=== PATIENT | male | born 1930 | race Caucasian/White ===

== ENCOUNTER 2016-12-06 11:26 | Emergency (ER) | payer OTHER ==
[~2016-12-06] VITALS: Ht 177.8 cm; Wt 83.0 kg
[~2016-12-06 11:26] MED LIST: ADULT LOW DOSE81 M1 PO; ADVAIR HFA120 INHAL1 IH; ADVAIR HFA120 INHALA IH; AERONEB GO NEB1 EACH MC; ASPIR 8181 M1 PO; CEFTIN500 MG PO; CIPRO500 MG PO; CORTISONE57 GM TP; CORTIZONE-10 PL57 GM TP; FLOMAX0.4 MG PO; FLONASE16 G1 BOTH NARES; FUROSEMIDE20 MG PO; FUROSEMIDE40 MG PO; Flagyl PO; HYDROCODON-ACE1 EAC7 PO; IMODIUM A-D2 MG PO; K-DUR20 MEQ PO; K-Dur PO; LASIX20 MG PO; LASIX40 MG PO; LO-DOSE ASPIRIN81 M1 PO; LOPRESSOR50 MG PO; LORTAB 5-325 M1 EACH PO; Lopressor PO; METOPROLOL SUCC25 MG PO; METOPROLOL TART50 MG PO; MUCINEX600 MG PO; NORCO 5/3251 TABLET PO; POTASSIUM CHLO20 ME1 PO; PREDNISONE20 MG PO; PRINIVIL5 MG PO; PROAIR HFA8.5 GM IH; PROVENTIL,2.5 MG/3 M IH; Proventil,Ventolin H IH; SIMVASTATIN40 M1 PO; SPIRIVA RESPIMAT4 GM IH; SPIRIVA1 INHALATI IH; TAMSULOSIN HCL0.4 MG PO; TYLENOL EXTRA500 MG PO; VENTOLIN HFA18 GM IH; ZOCOR40 MG PO; ZOFRAN ODT4 MG PO; ZOFRAN ODT8 MG PO; ZOFRAN ODT8 MG SL; predniSONE PO
[2016-12-06 12:38] LABS: CHLORIDE 101 mEq/L (99-109); POTASSIUM 4.9 mEq/L (3.7-5.4); SODIUM 140 mEq/L (136-147)
[2016-12-06 12:39] LABS: GLUCOSE 102 mg/dL (70-99)
[2016-12-06 12:41] LABS: ANION GAP 12 MEQ/L (2-14)
[2016-12-06 12:43] LABS: GFR ESTIMATE (CALCULATED) 51 mL/min/
[2016-12-06 12:44] LABS: UREA NITROGEN (BUN) 29 mg/dL (9-23)
[2016-12-06 12:51] LABS: TROP-I INTERPRETATION NEGATIVE; TROPONIN-I < 0.01 ng/mL (0.0-0.30)
[2016-12-06 12:57] LABS: EOSINOPHIL (%) 4.4 % (0-5); EOSINOPHIL COUNT 0.3 K/uL (0-0.3); HEMATOCRIT 37.5 % (38.0-50.0); IMMATURE GRANULOCYTE (%) 1.1 % (0.0-0.7); IMMATURE GRANULOCYTE COUNT 0.1 K/uL; INSTRUMENT ABS NEUTROPHIL CT 4.5 K/uL; LYMPHOCYTE COUNT 1.3 K/uL (1.0-2.8); MCH 29.1 PG (29.0-34.0); MCHC 31.5 G/DL (30.0-36.0); MCV 92.6 FL (86-99); MEAN PLAT.VOLUME 9.7 uM^3 (9.0-12.4); MONOCYTE (%) 12.7 % (3-12); MONOCYTE COUNT 0.9 K/uL (0-0.8); NEUTROPHIL (%) 63.3 % (45-76); NEUTROPHIL COUNT 4.5 K/uL (1.8-6.4); PLATELET COUNT 160 K/uL (156-360); RBC DIS.WIDTH-CV 13.1 % (11.8-14.6); RBC DIS.WIDTH-SD 44.8 % (39-53); RED BLOOD COUNT 4.05 M/uL (4.00-5.50); WHITE BLOOD COUNT 7.1 K/uL (4.1-10.2)
[2016-12-06 13:17] LABS: HDL CHOLESTEROL 49 MG/DL (Desirable>=40); LDL CHOLESTEROL 94 mg/dL (Desirable<100); NON-HDL CHOLESTEROL 112 mg/dL (Desirable<160); TOTAL CHOLESTEROL 161 mg/dL (Desirable<200); TRIGLYCERIDES 92 MG/DL (Normal: <150)
[2016-12-06 14:54] LABS: Estimated Average Glucose 123 mg/dL (70-123); HEMOGLOBIN A1c (GLYCOHEMOGLOB) 5.9 % HGB (Below 5.7)
[2016-12-06 15:00] VITALS: BP 157/65
== END 2016-12-06 16:02 | disposition short-term general hospital (02) ==
LOC: EME 11:26
PROVIDERS: Emergency Medicine
DX: I65.22 Occlusion and stenosis of left carotid artery (principal); R53.1 Weakness; I11.0 Hypertensive heart disease with heart failure; I50.9 Heart failure, unspecified; E78.5 Hyperlipidemia, unspecified; I25.2 Old myocardial infarction; Z87.442 Personal history of urinary calculi; Z95.1 Presence of aortocoronary bypass graft; Z95.0 Presence of cardiac pacemaker; Z79.82 Long term (current) use of aspirin; Z87.891 Personal history of nicotine dependence
CPT/HCPCS: 70450; 70496; 70498; 71010; 80048; 80061; 81003; 83036; 84484; 85025; 85610; 85730; 93005; 94640; 99281; 99285

== ENCOUNTER 2017-05-14 10:38 | Inpatient (IN) | payer OTHER ==
[~2017-05-14] VITALS: Ht 172.7 cm; Wt 77.7 kg
[~2017-05-14 10:38] MED LIST changes: +SPIRIVA18 MCG IH
[2017-05-14 11:54] LABS: EOSINOPHIL (%) 3.1 % (0-5); EOSINOPHIL COUNT 0.2 K/uL (0-0.3); HEMATOCRIT 31.2 % (38.0-50.0); IMMATURE GRANULOCYTE (%) 1.3 % (0.0-0.7); IMMATURE GRANULOCYTE COUNT 0.1 K/uL; INSTRUMENT ABS NEUTROPHIL CT 4.3 K/uL; LYMPHOCYTE COUNT 1.2 K/uL (1.0-2.8); MCH 28.8 PG (29.0-34.0); MCHC 31.7 G/DL (30.0-36.0); MCV 90.7 FL (86-99); MEAN PLAT.VOLUME 9.2 uM^3 (9.0-12.4); MONOCYTE (%) 14.2 % (3-12); NEUTROPHIL (%) 63.9 % (45-76); NEUTROPHIL COUNT 4.3 K/uL (1.8-6.4); PLATELET COUNT 171 K/uL (156-360); RBC DIS.WIDTH-CV 14.4 % (11.8-14.6); RBC DIS.WIDTH-SD 47.7 % (39-53); RED BLOOD COUNT 3.44 M/uL (4.00-5.50); WHITE BLOOD COUNT 6.7 K/uL (4.1-10.2)
[2017-05-14 11:59] LABS: INTER. NORMALIZED RATIO 1.1; PROTHROMBIN TIME 12.5 SEC (10.2-12.9)
[2017-05-14 12:02] LABS: CHLORIDE 99 mEq/L (99-109); POTASSIUM 5.2 mEq/L (3.7-5.4); SODIUM 136 mEq/L (136-147)
[2017-05-14 12:04] LABS: GLUCOSE 111 mg/dL (70-99)
[2017-05-14 12:05] LABS: ANION GAP 10 MEQ/L (2-14)
[2017-05-14 12:06] LABS: TOTAL BILIRUBIN 0.5 mg/dL (0.0-1.0)
[2017-05-14 12:07] LABS: ALKALINE PHOSPHATASE 135 IU/L (3-129)
[2017-05-14 12:08] LABS: GFR ESTIMATE (CALCULATED) 21 mL/min/
[2017-05-14 12:09] LABS: UREA NITROGEN (BUN) 32 mg/dL (9-23)
[2017-05-14 13:00] LABS: ADD MIUA? YES; BILIRUBIN NEGATIVE; BLOOD MODERATE; COLOR YELLOW ((YELLOW)); GLUCOSE (STRIP) NEGATIVE; KETONES NEGATIVE; LEUKOCYTES NEGATIVE; NITRITE NEGATIVE; PROTEIN (STRIP) NEGATIVE; SPECIFIC GRAVITY 1.012 (1.000-1.030); UROBILINOGEN 0.2 MG/DL (0.2-1.0)
[2017-05-14 13:06] LABS: BACTERIA NONE SEEN /HPF; EPITHELIAL CELLS RARE /HPF; GRANULAR CASTS 0-5 /LPF; MUCUS NONE SEEN /LPF; RED BLOOD CELLS 30-40 /HPF (0-5); UCUL ADDED? NO; WHITE BLOOD CELLS 0-5 /HPF (0-5)
[2017-05-14 16:11] VITALS: BP 149/62
[2017-05-14 19:43] VITALS: BP 144/67
[2017-05-14 23:36] VITALS: BP 145/64
[2017-05-15 04:36] VITALS: BP 133/71
[2017-05-15 05:59] LABS: HEMATOCRIT 27.5 % (38.0-50.0); MCV 90.8 FL (86-99); MEAN PLAT.VOLUME 9.5 uM^3 (9.0-12.4); PLATELET COUNT 145 K/uL (156-360); RBC DIS.WIDTH-CV 14.4 % (11.8-14.6); RBC DIS.WIDTH-SD 47.8 % (39-53); RED BLOOD COUNT 3.03 M/uL (4.00-5.50); WHITE BLOOD COUNT 5.7 K/uL (4.1-10.2)
[2017-05-15 06:24] LABS: ALKALINE PHOSPHATASE 121 IU/L (3-129); ANION GAP 7 MEQ/L (2-14); CHLORIDE 102 MEQ/L (99-109); GFR ESTIMATE (CALCULATED) 22 mL/min/; GLUCOSE 96 mg/dL (70-99); POTASSIUM 4.6 MEQ/L (3.7-5.4); SAMPLE HEMOLYSIS CHECK 0; SAMPLE ICTERIC CHECK 0; SAMPLE LIPEMIA CHECK 0; SODIUM 137 MEQ/L (136-147); TOTAL BILIRUBIN 0.4 MG/DL (0.0-1.0); UREA NITROGEN (BUN) 33 mg/dL (9-23)
[2017-05-15 07:57] VITALS: BP 153/78
[2017-05-15 11:37] VITALS: BP 144/69
[2017-05-15 15:28] LABS: IRON 16 MCG/DL (35-150)
[2017-05-15 15:45] LABS: FERRITIN 83 NG/ML (22-322)
[2017-05-15 16:26] VITALS: BP 124/56
[2017-05-15 22:30] LABS: INTERNAL CONTROL VALID? YES
[2017-05-15 23:44] VITALS: BP 149/79
[2017-05-16 06:23] LABS: HEMATOCRIT 28.1 % (38.0-50.0); MCH 28.8 PG (29.0-34.0); MCHC 31.7 G/DL (30.0-36.0); MCV 90.9 FL (86-99); MEAN PLAT.VOLUME 9.9 uM^3 (9.0-12.4); PLATELET COUNT 149 K/uL (156-360); RBC DIS.WIDTH-CV 14.4 % (11.8-14.6); RBC DIS.WIDTH-SD 48.3 % (39-53); RED BLOOD COUNT 3.09 M/uL (4.00-5.50); WHITE BLOOD COUNT 4.5 K/uL (4.1-10.2)
[2017-05-16 06:50] LABS: ANION GAP 6 MEQ/L (2-14); CHLORIDE 103 MEQ/L (99-109); GFR ESTIMATE (CALCULATED) 27 mL/min/; GLUCOSE 100 mg/dL (70-99); POTASSIUM 4.2 MEQ/L (3.7-5.4); SAMPLE HEMOLYSIS CHECK 0; SAMPLE ICTERIC CHECK 0; SAMPLE LIPEMIA CHECK 0; SODIUM 138 MEQ/L (136-147); UREA NITROGEN (BUN) 31 mg/dL (9-23)
[2017-05-16 08:15] VITALS: BP 154/67
[2017-05-16 16:36] VITALS: BP 159/70
[2017-05-16 19:29] VITALS: BP 147/63
[2017-05-16 23:45] VITALS: BP 142/62
[2017-05-17 03:44] VITALS: BP 146/62
[2017-05-17 07:56] VITALS: BP 140/82
[2017-05-17 09:39] LABS: HEMATOCRIT 30.9 % (38.0-50.0); MCH 28.2 PG (29.0-34.0); MCHC 30.7 G/DL (30.0-36.0); MCV 91.7 FL (86-99); MEAN PLAT.VOLUME 9.8 uM^3 (9.0-12.4); PLATELET COUNT 160 K/uL (156-360); RBC DIS.WIDTH-CV 14.2 % (11.8-14.6); RBC DIS.WIDTH-SD 48.3 % (39-53); RED BLOOD COUNT 3.37 M/uL (4.00-5.50); WHITE BLOOD COUNT 5.2 K/uL (4.1-10.2)
[2017-05-17 10:00] LABS: ANION GAP 8 MEQ/L (2-14); CHLORIDE 104 MEQ/L (99-109); POTASSIUM 4.2 MEQ/L (3.7-5.4); SAMPLE HEMOLYSIS CHECK 0; SAMPLE ICTERIC CHECK 0; SAMPLE LIPEMIA CHECK 0; SODIUM 140 MEQ/L (136-147)
[2017-05-17 10:06] LABS: GFR ESTIMATE (CALCULATED) 38 mL/min/; GLUCOSE 108 mg/dL (70-99); UREA NITROGEN (BUN) 28 mg/dL (9-23)
[2017-05-17 12:02] VITALS: BP 122/80
[2017-05-17] MEDS ORDERED: TAMSULOSIN HCL0.4 MG PO (12:11)
== END 2017-05-17 15:46 | disposition home or self-care (01) | DRG 694 ==
LOC: EME 10:38 → 5SOUTH 12:55 → EDOF 12:55 → ENRESERV 13:01 → 5SOUTH 15:05
PROVIDERS: Emergency Medicine; Internal Medicine
PROC: 0T768DZ Dilation of Right Ureter with Intraluminal Device, Via Natural or Artificial Opening Endoscopic (ICD-10-PCS; principal; 2017-05-15)
DX: N13.2 Hydronephrosis with renal and ureteral calculous obstruction (principal); N17.9 Acute kidney failure, unspecified; I13.0 Hypertensive heart and chronic kidney disease with heart failure and stage 1 through stage 4 chronic kidney disease, or unspecified chronic kidney disease; N18.9 Chronic kidney disease, unspecified; I50.9 Heart failure, unspecified; J96.10 Chronic respiratory failure, unspecified whether with hypoxia or hypercapnia; Z99.81 Dependence on supplemental oxygen; J44.9 Chronic obstructive pulmonary disease, unspecified; I42.0 Dilated cardiomyopathy; D63.8 Anemia in other chronic diseases classified elsewhere; R19.7 Diarrhea, unspecified; I25.10 Atherosclerotic heart disease of native coronary artery without angina pectoris; E78.5 Hyperlipidemia, unspecified; N40.0 Benign prostatic hyperplasia without lower urinary tract symptoms; F17.210 Nicotine dependence, cigarettes, uncomplicated; I25.2 Old myocardial infarction; Z95.0 Presence of cardiac pacemaker; Z95.1 Presence of aortocoronary bypass graft; Z22.39 Carrier of other specified bacterial diseases; Z23 Encounter for immunization
CPT/HCPCS: 71250; 76705; 76770; 80048; 80053; 81003; 82272; 82728; 83540; 84466; 85025; 85027; 85610; 87077; 87086; 87186; 87493; 90686; 94640; 94640 76; 94799; 99202; 99281; 99285; C1758; C1876; J0696; J1644; J2250; J7030; J7042; J7050; S0028

== ENCOUNTER 2017-07-09 12:20 | Inpatient (IN) | payer OTHER ==
[~2017-07-09] VITALS: Ht 180.3 cm; Wt 72.4 kg
[~2017-07-09 12:20] MED LIST changes: -ADVAIR HFA120 INHAL1 IH; -FUROSEMIDE40 MG PO; -SPIRIVA18 MCG IH
[2017-07-09 14:13] LABS: BASOPHIL (%) 0.2 % (0-1); EOSINOPHIL (%) 0 % (0-5); HEMATOCRIT 37.2 % (38.0-50.0); HEMOGLOBIN 11.8 G/DL (12.5-16.6); LYMPHOCYTE (%) 5.1 % (15-42); LYMPHOCYTE COUNT 0.8 K/uL (1.0-2.8); MCH 29.5 PG (29.0-34.0); MCHC 31.7 G/DL (30.0-36.0); MONOCYTE (%) 2.7 % (3-12); MONOCYTE COUNT 0.4 K/uL (0-0.8); NEUTROPHIL COUNT 14.8 K/uL (1.8-6.4); PLATELET COUNT 194 K/uL (156-360); RBC DIS.WIDTH-CV 14.7 % (11.8-14.6); RBC DIS.WIDTH-SD 50.8 % (39-53); WHITE BLOOD COUNT 16.2 K/uL (4.1-10.2)
[2017-07-09 14:20] LABS: ALBUMIN 3.4 g/dL (3.2-4.8); CHLORIDE 101 mEq/L (99-109); POTASSIUM 5.5 mEq/L (3.7-5.4); SODIUM 137 mEq/L (136-147)
[2017-07-09 14:22] LABS: GLUCOSE 113 mg/dL (70-99)
[2017-07-09 14:26] LABS: ALKALINE PHOSPHATASE 542 IU/L (3-129); CREATININE 3.1 mg/dL (0.6-1.3); GFR ESTIMATE (CALCULATED) 20 mL/min/ (58.99-99999)
[2017-07-09 14:27] LABS: UREA NITROGEN (BUN) 61 mg/dL (9-23)
[2017-07-09 14:28] LABS: AST (GOT) 50 IU/L (2-34)
[2017-07-09 14:29] LABS: ALT (GPT) 48 IU/L (3-49)
[2017-07-09 14:32] LABS: TROP-I INTERPRETATION NEGATIVE; TROPONIN-I 0.07 ng/mL (0.0-0.30)
[2017-07-09] MEDS ORDERED: METOPROLOL TART50 MG PO (16:53)
[2017-07-09] MEDS ORDERED: FUROSEMIDE40 MG PO (16:53)
[2017-07-09] MEDS ORDERED: K-DUR20 MEQ PO (16:54)
[2017-07-09] MEDS ORDERED: ADVAIR HFA120 INHAL1 IH (16:54)
[2017-07-09] MEDS ORDERED: VITAMIN D31000 UNIT PO (16:54)
[2017-07-09] MEDS ORDERED: VENTOLIN HFA18 GM IH (16:54)
[2017-07-09] MEDS ORDERED: PROVENTIL,2.5 MG/3 M IH (16:54)
[2017-07-09] MEDS ORDERED: FLOMAX0.4 MG PO (16:54)
[2017-07-09] MEDS ORDERED: SPIRIVA1 INHALATI IH (16:54)
[2017-07-09] MEDS ORDERED: DALIRESP500 MCG PO (16:55)
[2017-07-09] MEDS ORDERED: ALLOPURINOL100 MG PO (16:55)
[2017-07-09] MEDS ORDERED: CYANOCOBALAM1000 MCG PO (16:55)
[2017-07-09] MEDS ORDERED: PYRIDIUM100 MG PO (16:55)
[2017-07-09] MEDS ORDERED: BACTRIM,SEPT1 TABLE1 PO (16:56)
[2017-07-09] MEDS ORDERED: INCRUSE ELLI62.5 MCG IH (16:56)
[2017-07-09 17:47] LABS: APPEARANCE SL.HAZY ((CLEAR)); BILIRUBIN NEGATIVE; BLOOD LARGE; COLOR AMBER ((YELLOW)); GLUCOSE (STRIP) NEGATIVE; KETONES NEGATIVE; LEUKOCYTES LARGE; NITRITE POSITIVE; PROTEIN (STRIP) 100; SPECIFIC GRAVITY 1.013 (1.000-1.030)
[2017-07-09 18:06] LABS: RED BLOOD CELLS TNTC /HPF (0-5); WHITE BLOOD CELLS TNTC /HPF (0-5)
[2017-07-09 18:07] LABS: BACTERIA 1+ /HPF; MUCUS NONE SEEN /LPF; UCUL ADDED? YES
[2017-07-09 22:20] VITALS: BP 97/44
[2017-07-09 22:28] VITALS: BP 97/44
[2017-07-09 22:30] VITALS: BP 96/43
[2017-07-09 22:45] VITALS: BP 90/44
[2017-07-09 23:00] VITALS: BP 91/44
[2017-07-09 23:30] VITALS: BP 98/44
[2017-07-10] VITALS (22 sets, daily range): BP systolic 88–127; BP diastolic 38–66
[2017-07-10 07:14] LABS: APPEARANCE CLOUDY ((CLEAR)); BILIRUBIN NEGATIVE; BLOOD LARGE; COLOR AMBER ((YELLOW)); GLUCOSE (STRIP) NEGATIVE; KETONES NEGATIVE; LEUKOCYTES LARGE; NITRITE POSITIVE; PROTEIN (STRIP) 100; SPECIFIC GRAVITY 1.014 (1.000-1.030)
[2017-07-10 07:44] LABS: BACTERIA 3+ /HPF; EPITHELIAL CELLS NONE SEEN /HPF; MUCUS NONE SEEN /LPF; RED BLOOD CELLS 30-40 /HPF (0-5); UCUL ADDED? YES; WHITE BLOOD CELLS TNTC /HPF (0-5)
[2017-07-10 07:48] LABS: HEMATOCRIT 28.9 % (38.0-50.0); MCH 29.6 PG (29.0-34.0); MCHC 31.1 G/DL (30.0-36.0); MCV 95.1 FL (86-99); PLATELET COUNT 139 K/uL (156-360); RBC DIS.WIDTH-CV 15.2 % (11.8-14.6); RBC DIS.WIDTH-SD 53.6 % (39-53); RED BLOOD COUNT 3.04 M/uL (4.00-5.50)
[2017-07-10 07:59] LABS: ALBUMIN 2.2 G/DL (3.2-4.8); ALKALINE PHOSPHATASE 338 IU/L (3-129); ALT (GPT) 26 IU/L (3-49); AST (GOT) 26 IU/L (2-34); CHLORIDE 113 MEQ/L (99-109); CREATININE 2.9 MG/DL (0.6-1.3); GFR ESTIMATE (CALCULATED) 22 mL/min/ (58.99-99999); GLUCOSE 95 mg/dL (70-99); TOTAL BILIRUBIN 0.7 MG/DL (0.0-1.0); TOTAL PROTEIN 4.3 G/DL (6.4-8.3); UREA NITROGEN (BUN) 59 mg/dL (9-23)
[2017-07-10 08:10] LABS: POTASSIUM 4.3 MEQ/L (3.7-5.4); SODIUM 144 MEQ/L (136-147)
[2017-07-11] VITALS (20 sets, daily range): BP systolic 101–160; BP diastolic 42–70
[2017-07-11 09:33] LABS: HEMATOCRIT 27.9 % (38.0-50.0); HEMOGLOBIN 8.9 G/DL (12.5-16.6); MCH 30.4 PG (29.0-34.0); MCHC 31.9 G/DL (30.0-36.0); MCV 95.2 FL (86-99); PLATELET COUNT 163 K/uL (156-360); RBC DIS.WIDTH-CV 15.5 % (11.8-14.6); RED BLOOD COUNT 2.93 M/uL (4.00-5.50)
[2017-07-11 10:10] LABS: ABS NEUTROPHIL COUNT 6.8; BASOPHILS 0.9 %; EOSINOPHIL ABS CT 0.1; EOSINOPHILS 1.7 % (0-5.0); LYMPHOCYTES 10.4 % (15.0-45.0); MONOCYTES 1.7 % (0-9.0); PLAT.SUFFICIENCY ADEQUATE; SEG.NEUTROPHILS 85.3 % (46.0-76.0)
[2017-07-11 10:35] LABS: CHLORIDE 110 MEQ/L (99-109); CREATININE 2.6 MG/DL (0.6-1.3); GFR ESTIMATE (CALCULATED) 25 mL/min/ (58.99-99999); GLUCOSE 107 mg/dL (70-99); MAGNESIUM 1.9 mg/dl (1.3-2.7); PHOSPHORUS 3.1 mg/dL (2.5-4.9); POTASSIUM 3.9 MEQ/L (3.7-5.4); SODIUM 141 MEQ/L (136-147); UREA NITROGEN (BUN) 51 mg/dL (9-23)
[2017-07-12 03:50] VITALS: BP 141/63
[2017-07-12 08:33] VITALS: BP 141/59
[2017-07-12 11:06] VITALS: BP 137/63
[2017-07-12 15:53] VITALS: BP 150/67
[2017-07-12 19:46] VITALS: BP 162/67
[2017-07-12 23:16] VITALS: BP 158/74
[2017-07-13 03:14] VITALS: BP 155/67
[2017-07-13 06:49] LABS: HEMATOCRIT 29.6 % (38.0-50.0); HEMOGLOBIN 9.6 G/DL (12.5-16.6); MCHC 32.4 G/DL (30.0-36.0); MCV 92.5 FL (86-99); PLATELET COUNT 201 K/uL (156-360); RBC DIS.WIDTH-CV 14.9 % (11.8-14.6); RBC DIS.WIDTH-SD 50.7 % (39-53)
[2017-07-13 07:09] VITALS: BP 168/73
[2017-07-13 07:10] LABS: CHLORIDE 108 MEQ/L (99-109); GFR ESTIMATE (CALCULATED) 36 mL/min/ (58.99-99999); GLUCOSE 100 mg/dL (70-99); POTASSIUM 3.6 MEQ/L (3.7-5.4); SODIUM 142 MEQ/L (136-147); UREA NITROGEN (BUN) 32 mg/dL (9-23)
[2017-07-13 07:15] LABS: CREATININE 1.9 MG/DL (0.6-1.3)
[2017-07-13 11:17] VITALS: BP 142/64
[2017-07-13 15:31] VITALS: BP 139/63
[2017-07-13 20:04] VITALS: BP 143/67
[2017-07-13 23:20] VITALS: BP 169/75
[2017-07-14 03:47] VITALS: BP 156/70
[2017-07-14 06:44] LABS: HEMATOCRIT 30.8 % (38.0-50.0); HEMOGLOBIN 9.8 G/DL (12.5-16.6); MCH 29.2 PG (29.0-34.0); MCHC 31.8 G/DL (30.0-36.0); MCV 91.7 FL (86-99); PLATELET COUNT 219 K/uL (156-360); RBC DIS.WIDTH-CV 14.8 % (11.8-14.6); RBC DIS.WIDTH-SD 50.4 % (39-53); RED BLOOD COUNT 3.36 M/uL (4.00-5.50); WHITE BLOOD COUNT 6.4 K/uL (4.1-10.2)
[2017-07-14 06:53] LABS: INTER. NORMALIZED RATIO 1.1
[2017-07-14 07:22] LABS: CHLORIDE 108 MEQ/L (99-109); CREATININE 1.8 MG/DL (0.6-1.3); GFR ESTIMATE (CALCULATED) 38 mL/min/ (58.99-99999); GLUCOSE 80 mg/dL (70-99); POTASSIUM 3.8 MEQ/L (3.7-5.4); SODIUM 143 MEQ/L (136-147); UREA NITROGEN (BUN) 32 mg/dL (9-23)
[2017-07-14 08:32] VITALS: BP 138/62
[2017-07-14 12:29] VITALS: BP 160/76
[2017-07-14 14:03] VITALS: BP 134/60
[2017-07-14 16:19] VITALS: BP 130/60
[2017-07-14 20:30] VITALS: BP 139/63
[2017-07-15 01:00] VITALS: BP 143/68
[2017-07-15 04:15] VITALS: BP 143/65
[2017-07-15 07:05] VITALS: BP 127/73
[2017-07-15 07:11] LABS: HEMATOCRIT 33.4 % (38.0-50.0); HEMOGLOBIN 10.5 G/DL (12.5-16.6); MCH 29.1 PG (29.0-34.0); MCHC 31.4 G/DL (30.0-36.0); MCV 92.5 FL (86-99); PLATELET COUNT 247 K/uL (156-360); RBC DIS.WIDTH-CV 14.9 % (11.8-14.6); RBC DIS.WIDTH-SD 51.8 % (39-53); RED BLOOD COUNT 3.61 M/uL (4.00-5.50); WHITE BLOOD COUNT 10.1 K/uL (4.1-10.2)
[2017-07-15 07:17] LABS: TROP-I INTERPRETATION NEGATIVE; TROPONIN-I 0.21 ng/mL (0.0-0.30)
[2017-07-15 07:35] LABS: CHLORIDE 105 MEQ/L (99-109); CREATININE 1.9 MG/DL (0.6-1.3); GFR ESTIMATE (CALCULATED) 36 mL/min/ (58.99-99999); GLUCOSE 93 mg/dL (70-99); POTASSIUM 3.5 MEQ/L (3.7-5.4); SODIUM 142 MEQ/L (136-147); UREA NITROGEN (BUN) 32 mg/dL (9-23)
[2017-07-15 07:36] LABS: ABS NEUTROPHIL COUNT 8.6; ANISOCYTOSIS 1+; ATYPICAL LYMPHOCYTE 2.6 %; EOSINOPHIL ABS CT 0.2; EOSINOPHILS 1.8 % (0-5.0); LYMPHOCYTES 8.6 % (15.0-45.0); MONOCYTES 1.7 % (0-9.0); PLAT.SUFFICIENCY ADEQUATE; SEG.NEUTROPHILS 85.3 % (46.0-76.0); SMUDGE CELLS 2.6
[2017-07-15 11:10] VITALS: BP 138/91
[2017-07-15 15:20] VITALS: BP 116/58
[2017-07-15 19:35] VITALS: BP 114/55
[2017-07-16 00:25] VITALS: BP 146/65; BP 152/90
[2017-07-16 04:14] VITALS: BP 154/68
[2017-07-16 06:56] LABS: HEMATOCRIT 32.9 % (38.0-50.0); HEMOGLOBIN 10.1 G/DL (12.5-16.6); MCH 28.6 PG (29.0-34.0); MCHC 30.7 G/DL (30.0-36.0); MCV 93.2 FL (86-99); PLATELET COUNT 242 K/uL (156-360); RBC DIS.WIDTH-CV 15.3 % (11.8-14.6); RBC DIS.WIDTH-SD 52.2 % (39-53); RED BLOOD COUNT 3.53 M/uL (4.00-5.50); WHITE BLOOD COUNT 10.6 K/uL (4.1-10.2)
[2017-07-16 07:19] LABS: CHLORIDE 105 MEQ/L (99-109); CREATININE 1.9 MG/DL (0.6-1.3); GFR ESTIMATE (CALCULATED) 36 mL/min/ (58.99-99999); GLUCOSE 97 mg/dL (70-99); POTASSIUM 3.1 MEQ/L (3.7-5.4); SODIUM 140 MEQ/L (136-147); UREA NITROGEN (BUN) 32 mg/dL (9-23)
[2017-07-16 07:25] LABS: ABS NEUTROPHIL COUNT 7.2; ATYPICAL LYMPHOCYTE 4.4 %; BASOPHILS 0.9 %; EOSINOPHIL ABS CT 0.2; EOSINOPHILS 1.8 % (0-5.0); LYMPHOCYTES 17.7 % (15.0-45.0); METAMYELOCYTES 2.6 %; MONOCYTES 4.4 % (0-9.0); PLAT.SUFFICIENCY ADEQUATE; SEG.NEUTROPHILS 68.2 % (46.0-76.0); SMUDGE CELLS 7.1
[2017-07-16 08:38] VITALS: BP 168/94
[2017-07-16 12:00] VITALS: BP 150/67
[2017-07-16 16:00] VITALS: BP 161/71
[2017-07-16 20:40] VITALS: BP 143/64
[2017-07-17 00:49] VITALS: BP 113/62
[2017-07-17 04:04] VITALS: BP 120/68
[2017-07-17 06:35] LABS: HEMATOCRIT 30.6 % (38.0-50.0); HEMOGLOBIN 9.5 G/DL (12.5-16.6); MCV 93.3 FL (86-99); PLATELET COUNT 279 K/uL (156-360); RBC DIS.WIDTH-CV 15.7 % (11.8-14.6); RBC DIS.WIDTH-SD 53.5 % (39-53); RED BLOOD COUNT 3.28 M/uL (4.00-5.50); WHITE BLOOD COUNT 9.1 K/uL (4.1-10.2)
[2017-07-17 06:39] LABS: CHLORIDE 105 MEQ/L (99-109); CREATININE 1.7 MG/DL (0.6-1.3); GFR ESTIMATE (CALCULATED) 41 mL/min/ (58.99-99999); GLUCOSE 95 mg/dL (70-99); POTASSIUM 3.3 MEQ/L (3.7-5.4); SODIUM 141 MEQ/L (136-147); UREA NITROGEN (BUN) 29 mg/dL (9-23)
[2017-07-17 07:35] LABS: ABS NEUTROPHIL COUNT 6.8; ATYPICAL LYMPHOCYTE 4.4 %; EOSINOPHIL ABS CT 0.2; EOSINOPHILS 2.6 % (0-5.0); LYMPHOCYTES 10.5 % (15.0-45.0); MYELOCYTES 0.9 %; NUCLEATED RBC'S 0.9; PLAT.SUFFICIENCY ADEQUATE; SEG.NEUTROPHILS 74.6 % (46.0-76.0); SMUDGE CELLS 8.8
[2017-07-17 07:40] VITALS: BP 140/63
[2017-07-17 11:10] VITALS: BP 146/70
[2017-07-17] MEDS ORDERED: NAFCIL2 GM IV (13:40)
[2017-07-17 15:57] VITALS: BP 137/64
== END 2017-07-17 17:35 | disposition home health service (06) | DRG 872 ==
LOC: EME 12:20 → 4WEST 16:56 → EDOF 16:56 → 2EAST 16:56 → ENRESERV 16:58 → EDOF 18:24 → ENRESERV 18:25 → 4WEST 22:09 → ENRESERV 07-11 14:55 → 2EAST 07-11 16:47
PROVIDERS: Emergency Medicine; Family Medicine; Internal Medicine; Internal Medicine Cardiovascular Disease; Internal Medicine Critical Care Medicine; Specialist
DX: A41.01 Sepsis due to Methicillin susceptible Staphylococcus aureus (principal); K80.00 Calculus of gallbladder with acute cholecystitis without obstruction; B95.61 Methicillin susceptible Staphylococcus aureus infection as the cause of diseases classified elsewhere; N13.2 Hydronephrosis with renal and ureteral calculous obstruction; N17.9 Acute kidney failure, unspecified; I13.0 Hypertensive heart and chronic kidney disease with heart failure and stage 1 through stage 4 chronic kidney disease, or unspecified chronic kidney disease; I50.32 Chronic diastolic (congestive) heart failure; N18.4 Chronic kidney disease, stage 4 (severe); J44.1 Chronic obstructive pulmonary disease with (acute) exacerbation; J96.11 Chronic respiratory failure with hypoxia; Z99.81 Dependence on supplemental oxygen; I95.9 Hypotension, unspecified; I69.351 Hemiplegia and hemiparesis following cerebral infarction affecting right dominant side; I08.1 Rheumatic disorders of both mitral and tricuspid valves; I27.20 Pulmonary hypertension, unspecified; I25.10 Atherosclerotic heart disease of native coronary artery without angina pectoris; I25.2 Old myocardial infarction; Z95.1 Presence of aortocoronary bypass graft; N40.0 Benign prostatic hyperplasia without lower urinary tract symptoms; E78.5 Hyperlipidemia, unspecified; I44.7 Left bundle-branch block, unspecified; F17.210 Nicotine dependence, cigarettes, uncomplicated; Z90.49 Acquired absence of other specified parts of digestive tract; Z95.0 Presence of cardiac pacemaker
CPT/HCPCS: 49405; 71045; 74018; 76705; 76770; 78582; 80048; 80053; 80202; 81003; 82436; 82948; 83605; 83735; 83880; 84100; 84484; 85025; 85027; 85610; 87040; 87070; 87075; 87077; 87086; 87147; 87186; 87205; 87502; 87641; 87801; 93005; 93306; 94640; 94640 76; 94760; 94799; 97530 GO; 99202; 99281; 99284; A9539; A9540; C1769; C2625; J1644; J2250; J2405; J2543; J3010; J3370; J7030; J7040; J7050; S0032

== ENCOUNTER → 2017-08-20 | Outpatient (CLI) | payer OTHER ==
[~2017-08-20] MED LIST changes: +ADVAIR HFA120 INHAL1 IH; +ALLOPURINOL100 MG PO; +BACTRIM,SEPT1 TABLE1 PO; +CYANOCOBALAM1000 MCG PO; +DALIRESP500 MCG PO; +FUROSEMIDE40 MG PO; +INCRUSE ELLI62.5 MCG IH; +NAFCIL2 GM IV; +PYRIDIUM100 MG PO; +VITAMIN D31000 UNIT PO
== END | disposition home or self-care (01) ==
LOC: RAD 10:00
PROC: 0FP4X0Z Removal of Drainage Device from Gallbladder, External Approach (ICD-10-PCS; principal; 2017-08-20)
DX: K81.0 Acute cholecystitis (principal)
CPT/HCPCS: 47532

== ENCOUNTER 2017-11-15 00:28 | Inpatient (IN) | payer OTHER ==
[~2017-11-15] VITALS: Ht 177.8 cm; Wt 68.6 kg
[2017-11-15 01:31] LABS: HEMATOCRIT 36.4 % (38.0-50.0); HEMOGLOBIN 11.7 G/DL (12.5-16.6); MCH 30.8 PG (29.0-34.0); MCHC 32.1 G/DL (30.0-36.0); MCV 95.8 FL (86-99); PLATELET COUNT 151 K/uL (156-360); RBC DIS.WIDTH-CV 13.4 % (11.8-14.6); RBC DIS.WIDTH-SD 46.7 % (39-53)
[2017-11-15 01:39] LABS: PTT 29.8 SEC (25-37)
[2017-11-15 01:44] LABS: CHLORIDE 100 mEq/L (99-109); POTASSIUM 4.2 mEq/L (3.7-5.4); SODIUM 140 mEq/L (136-147)
[2017-11-15 01:46] LABS: GLUCOSE 118 mg/dL (70-99)
[2017-11-15 01:50] LABS: GFR ESTIMATE (CALCULATED) 34 mL/min/ (58.99-99999)
[2017-11-15 01:51] LABS: UREA NITROGEN (BUN) 39 mg/dL (9-23)
[2017-11-15 03:49] LABS: HEMATOCRIT 30.9 % (38.0-50.0); MCHC 32.4 G/DL (30.0-36.0); MCV 95.7 FL (86-99); PLATELET COUNT 132 K/uL (156-360); RBC DIS.WIDTH-CV 13.4 % (11.8-14.6); RBC DIS.WIDTH-SD 47.5 % (39-53); RED BLOOD COUNT 3.23 M/uL (4.00-5.50)
[2017-11-15 04:33] VITALS: BP 133/65
[2017-11-15 07:33] VITALS: BP 122/60
[2017-11-15 11:59] VITALS: BP 109/55
[2017-11-15 15:58] VITALS: BP 110/56
[2017-11-15 20:43] VITALS: BP 140/64
[2017-11-15 23:53] VITALS: BP 105/51
[2017-11-16] VITALS (11 sets, daily range): BP systolic 93–119; BP diastolic 46–65
[2017-11-16 06:23] LABS: HEMATOCRIT 23.5 % (38.0-50.0); MCH 30.5 PG (29.0-34.0); MCHC 31.5 G/DL (30.0-36.0); MCV 96.7 FL (86-99); PLATELET COUNT 104 K/uL (156-360); RBC DIS.WIDTH-CV 13.7 % (11.8-14.6); RBC DIS.WIDTH-SD 48.5 % (39-53); WHITE BLOOD COUNT 5.7 K/uL (4.1-10.2)
[2017-11-16 06:26] LABS: HEMOGLOBIN 7.4 G/DL (12.5-16.6); RED BLOOD COUNT 2.43 M/uL (4.00-5.50)
[2017-11-16 06:34] LABS: CHLORIDE 106 MEQ/L (99-109); GFR ESTIMATE (CALCULATED) 34 mL/min/ (58.99-99999); GLUCOSE 119 mg/dL (70-99); POTASSIUM 4.2 MEQ/L (3.7-5.4); SODIUM 139 MEQ/L (136-147); UREA NITROGEN (BUN) 39 mg/dL (9-23)
[2017-11-16 12:36] LABS: TROP-I INTERPRETATION NEGATIVE; TROPONIN-I 0.05 ng/mL (0.0-0.30)
[2017-11-17] VITALS (8 sets, daily range): BP systolic 100–119; BP diastolic 49–70
[2017-11-17 06:40] LABS: HEMATOCRIT 26.1 % (38.0-50.0); HEMOGLOBIN 8.2 G/DL (12.5-16.6); MCH 29.6 PG (29.0-34.0); MCHC 31.4 G/DL (30.0-36.0); MCV 94.2 FL (86-99); PLATELET COUNT 85 K/uL (156-360); RBC DIS.WIDTH-CV 14.7 % (11.8-14.6); RBC DIS.WIDTH-SD 51.3 % (39-53); RED BLOOD COUNT 2.77 M/uL (4.00-5.50)
[2017-11-17 07:02] LABS: CHLORIDE 104 MEQ/L (99-109); CREATININE 2.4 MG/DL (0.6-1.3); GFR ESTIMATE (CALCULATED) 27 mL/min/ (58.99-99999); GLUCOSE 111 mg/dL (70-99); POTASSIUM 4.7 MEQ/L (3.7-5.4); SODIUM 138 MEQ/L (136-147); UREA NITROGEN (BUN) 42 mg/dL (9-23)
[2017-11-18 06:45] LABS: HEMATOCRIT 25.9 % (38.0-50.0); HEMOGLOBIN 8.2 G/DL (12.5-16.6); MCH 29.5 PG (29.0-34.0); MCHC 31.7 G/DL (30.0-36.0); MCV 93.2 FL (86-99); PLATELET COUNT 98 K/uL (156-360); RBC DIS.WIDTH-CV 14.2 % (11.8-14.6); RBC DIS.WIDTH-SD 48.5 % (39-53); RED BLOOD COUNT 2.78 M/uL (4.00-5.50); WHITE BLOOD COUNT 5.7 K/uL (4.1-10.2)
[2017-11-18 07:06] LABS: CHLORIDE 106 MEQ/L (99-109); CREATININE 2.1 MG/DL (0.6-1.3); GFR ESTIMATE (CALCULATED) 32 mL/min/ (58.99-99999); GLUCOSE 107 mg/dL (70-99); POTASSIUM 4.5 MEQ/L (3.7-5.4); SODIUM 137 MEQ/L (136-147); UREA NITROGEN (BUN) 40 mg/dL (9-23)
[2017-11-18 07:31] VITALS: BP 109/53
[2017-11-18 11:42] VITALS: BP 118/59
[2017-11-18 15:59] VITALS: BP 119/58
[2017-11-18 19:30] VITALS: BP 148/65
[2017-11-18 23:25] VITALS: BP 150/70
[2017-11-19 04:34] VITALS: BP 128/59
[2017-11-19 07:27] VITALS: BP 108/55
[2017-11-19 07:51] VITALS: BP 118/56
[2017-11-19 11:21] VITALS: BP 118/56
[2017-11-19 19:42] VITALS: BP 136/62
[2017-11-19 23:32] VITALS: BP 118/58
[2017-11-20 05:56] LABS: HEMATOCRIT 26.9 % (38.0-50.0); HEMOGLOBIN 8.4 G/DL (12.5-16.6); MCH 29.6 PG (29.0-34.0); MCHC 31.2 G/DL (30.0-36.0); MCV 94.7 FL (86-99); RBC DIS.WIDTH-CV 13.9 % (11.8-14.6); RBC DIS.WIDTH-SD 48.6 % (39-53); RED BLOOD COUNT 2.84 M/uL (4.00-5.50); WHITE BLOOD COUNT 4.8 K/uL (4.1-10.2)
[2017-11-20 05:57] LABS: PLATELET COUNT 139 K/uL (156-360)
[2017-11-20 06:19] LABS: CHLORIDE 106 MEQ/L (99-109); GFR ESTIMATE (CALCULATED) 34 mL/min/ (58.99-99999); GLUCOSE 98 mg/dL (70-99); POTASSIUM 4.8 MEQ/L (3.7-5.4); SODIUM 139 MEQ/L (136-147); UREA NITROGEN (BUN) 48 mg/dL (9-23)
[2017-11-20 07:21] VITALS: BP 113/55
[2017-11-20 11:14] VITALS: BP 110/54
[2017-11-20] MEDS ORDERED: DOCUSATE SODIU100 MG PO (14:50)
[2017-11-20] MEDS ORDERED: BISACODYL5 MG PO (14:50)
[2017-11-20] MEDS ORDERED: LOVENOX40 MG/0.4 SC (16:10)
[2017-11-20 16:16] VITALS: BP 108/52
[2017-11-20 20:38] VITALS: BP 116/56
[2017-11-21 01:39] VITALS: BP 120/60
[2017-11-21 04:39] VITALS: BP 132/62
[2017-11-21 08:57] VITALS: BP 128/61
[2017-11-21 11:41] VITALS: BP 140/63
== END 2017-11-21 14:00 | DRG 981 ==
LOC: EME → EDBD 00:28 → EME 00:28 → 3EAST 02:47 → EDOF 02:47 → ENRESERV 02:49 → 3EAST 03:58 → UNDODEPER 04:03 → 3EAST 11-21 14:00
PROVIDERS: Emergency Medicine; Hospitalist; Internal Medicine; Internal Medicine Cardiovascular Disease
PROC: 0QS636Z Reposition Right Upper Femur with Intramedullary Internal Fixation Device, Percutaneous Approach (ICD-10-PCS; principal; 2017-11-15)
PROC: 30233N1 Transfusion of Nonautologous Red Blood Cells into Peripheral Vein, Percutaneous Approach (ICD-10-PCS; 2017-11-16)
DX: J96.10 Chronic respiratory failure, unspecified whether with hypoxia or hypercapnia (principal); S72.141A Displaced intertrochanteric fracture of right femur, initial encounter for closed fracture; W18.30XA Fall on same level, unspecified, initial encounter; I25.10 Atherosclerotic heart disease of native coronary artery without angina pectoris; N18.9 Chronic kidney disease, unspecified; I50.30 Unspecified diastolic (congestive) heart failure; J44.9 Chronic obstructive pulmonary disease, unspecified; I49.5 Sick sinus syndrome; E78.5 Hyperlipidemia, unspecified; I27.20 Pulmonary hypertension, unspecified; D64.9 Anemia, unspecified; F17.200 Nicotine dependence, unspecified, uncomplicated; I70.0 Atherosclerosis of aorta; I08.1 Rheumatic disorders of both mitral and tricuspid valves; K59.03 Drug induced constipation; R41.0 Disorientation, unspecified; M21.70 Unequal limb length (acquired), unspecified site; I13.0 Hypertensive heart and chronic kidney disease with heart failure and stage 1 through stage 4 chronic kidney disease, or unspecified chronic kidney disease; N18.3 Chronic kidney disease, stage 3 (moderate); I50.32 Chronic diastolic (congestive) heart failure; Z75.1 Person awaiting admission to adequate facility elsewhere; T40.605A Adverse effect of unspecified narcotics, initial encounter; I69.351 Hemiplegia and hemiparesis following cerebral infarction affecting right dominant side; Y92.009 Unspecified place in unspecified non-institutional (private) residence as the place of occurrence of the external cause; Z95.0 Presence of cardiac pacemaker; Z91.09 Other allergy status, other than to drugs and biological substances; Z99.81 Dependence on supplemental oxygen; Z90.49 Acquired absence of other specified parts of digestive tract; Z95.1 Presence of aortocoronary bypass graft; Z91.048 Other nonmedicinal substance allergy status
CPT/HCPCS: 71045; 73501; 73502; 73552; 74018; 76000; 80048; 81003; 84484; 85027; 85610; 85730; 86850; 86900; 86901; 86920; 93005; 94010; 94640; 94640 76; 94799; 97530 GO; 97530 GP; 99202; 99281; 99284; C1713; J0690; J1170; J1885; J1940; J2250; J3010; J7030; J7120; P9016; S0020

== ENCOUNTER 2018-02-17 12:35 | Inpatient (IN) | payer OTHER ==
[~2018-02-17] VITALS: Ht 180.3 cm; Wt 62.7 kg
[~2018-02-17 12:35] MED LIST changes: +BISACODYL5 MG PO; +DOCUSATE SODIU100 MG PO; +LOVENOX40 MG/0.4 SC
[2018-02-17 14:04] LABS: BASE EXCESS 2.6 mEq/L (-3 to +3); BICARBONATE 27.9 mEq/L (22-26); CARBOXY HGB 1.7 % (0-5); COMMENTS - BLOOD GASES A+C+; DEVICE NC; METHEMOGLOBIN 0.9 % (0-1.5); O2 FLOW 3 L/MIN; PCO2 45 mm Hg (35-45); PO2 100 mm Hg (80-100); SITE RR; TOTAL RESP RATE 22 resp/min
[2018-02-17 14:05] LABS: APPEARANCE CLEAR ((CLEAR)); BILIRUBIN NEGATIVE; BLOOD NEGATIVE; COLOR STRAW ((YELLOW)); GLUCOSE (STRIP) NEGATIVE; KETONES NEGATIVE; LEUKOCYTES NEGATIVE; NITRITE NEGATIVE; PROTEIN (STRIP) NEGATIVE; SPECIFIC GRAVITY 1.008 (1.000-1.030); UROBILINOGEN 0.2 MG/DL (0.2-1.0)
[2018-02-17 14:41] LABS: HEMATOCRIT 35.5 % (38.0-50.0); HEMOGLOBIN 11.3 G/DL (12.5-16.6); MCH 29.4 PG (29.0-34.0); MCHC 31.8 G/DL (30.0-36.0); MCV 92.4 FL (86-99); PLATELET COUNT 147 K/uL (156-360); RBC DIS.WIDTH-CV 14.8 % (11.8-14.6); RED BLOOD COUNT 3.84 M/uL (4.00-5.50)
[2018-02-17 14:53] LABS: ALBUMIN 3.2 g/dL (3.2-4.8); CHLORIDE 101 mEq/L (99-109); POTASSIUM 4.3 mEq/L (3.7-5.4); SODIUM 139 mEq/L (136-147)
[2018-02-17 14:55] LABS: GLUCOSE 99 mg/dL (70-99)
[2018-02-17 14:56] LABS: TOTAL PROTEIN 6.3 g/dL (6.4-8.3)
[2018-02-17 14:57] LABS: TOTAL BILIRUBIN 0.3 mg/dL (0.0-1.0)
[2018-02-17 14:59] LABS: ALKALINE PHOSPHATASE 226 IU/L (3-129); CREATININE 2.4 mg/dL (0.6-1.3); GFR ESTIMATE (CALCULATED) 27 mL/min/ (58.99-99999)
[2018-02-17 15:00] LABS: UREA NITROGEN (BUN) 46 mg/dL (9-23)
[2018-02-17 15:01] LABS: AST (GOT) 16 IU/L (2-34)
[2018-02-17 15:02] LABS: ALT (GPT) 20 IU/L (3-49); TROP-I INTERPRETATION NEGATIVE; TROPONIN-I 0.03 ng/mL (0.0-0.30)
[2018-02-17 15:55] LABS: THYROTROPIN (TSH) 0.74 MIU/L (0.4-5.5)
[2018-02-17] MEDS ORDERED: CLARITIN-D 121 EACH PO (16:57)
[2018-02-17 19:54] VITALS: BP 108/51
[2018-02-17 21:13] LABS: TROP-I INTERPRETATION NEGATIVE; TROPONIN-I 0.03 ng/mL (0.0-0.30)
[2018-02-18 00:07] VITALS: BP 120/56
[2018-02-18 02:42] LABS: HEMATOCRIT 28.6 % (38.0-50.0); HEMOGLOBIN 9.4 G/DL (12.5-16.6); MCH 30.2 PG (29.0-34.0); MCHC 32.9 G/DL (30.0-36.0); PLATELET COUNT 126 K/uL (156-360); RBC DIS.WIDTH-CV 14.8 % (11.8-14.6); RBC DIS.WIDTH-SD 49.4 % (39-53); RED BLOOD COUNT 3.11 M/uL (4.00-5.50); WHITE BLOOD COUNT 5.6 K/uL (4.1-10.2)
[2018-02-18 02:52] LABS: CHLORIDE 107 mEq/L (99-109); POTASSIUM 4.2 mEq/L (3.7-5.4); SODIUM 140 mEq/L (136-147)
[2018-02-18 02:54] LABS: GLUCOSE 101 mg/dL (70-99)
[2018-02-18 02:58] LABS: CREATININE 2.2 mg/dL (0.6-1.3); GFR ESTIMATE (CALCULATED) 30 mL/min/ (58.99-99999)
[2018-02-18 02:59] LABS: UREA NITROGEN (BUN) 43 mg/dL (9-23)
[2018-02-18 03:08] LABS: TROP-I INTERPRETATION NEGATIVE; TROPONIN-I 0.04 ng/mL (0.0-0.30)
[2018-02-18 04:01] VITALS: BP 112/52
[2018-02-18 08:14] VITALS: BP 110/68
[2018-02-18 11:26] VITALS: BP 134/58
[2018-02-18 15:35] VITALS: BP 118/61
[2018-02-18 19:35] VITALS: BP 130/58
[2018-02-19 00:10] VITALS: BP 118/65
[2018-02-19 03:43] VITALS: BP 106/53
[2018-02-19 07:30] VITALS: BP 118/56
[2018-02-19 11:22] VITALS: BP 120/68
[2018-02-19 15:26] VITALS: BP 145/64
[2018-02-19 20:43] VITALS: BP 144/67
[2018-02-20 00:29] VITALS: BP 133/64
[2018-02-20 04:56] VITALS: BP 131/63
[2018-02-20 07:40] VITALS: BP 118/56
[2018-02-20 08:42] LABS: HEMATOCRIT 26.9 % (38.0-50.0); HEMOGLOBIN 8.6 G/DL (12.5-16.6); MCH 29.6 PG (29.0-34.0); MCV 92.4 FL (86-99); PLATELET COUNT 102 K/uL (156-360); RBC DIS.WIDTH-CV 14.6 % (11.8-14.6); RBC DIS.WIDTH-SD 50.4 % (39-53); RED BLOOD COUNT 2.91 M/uL (4.00-5.50); WHITE BLOOD COUNT 3.4 K/uL (4.1-10.2)
[2018-02-20 09:05] LABS: CHLORIDE 110 MEQ/L (99-109); CREATININE 1.8 MG/DL (0.6-1.3); GFR ESTIMATE (CALCULATED) 38 mL/min/ (58.99-99999); GLUCOSE 92 mg/dL (70-99); SODIUM 139 MEQ/L (136-147); UREA NITROGEN (BUN) 29 mg/dL (9-23)
[2018-02-20 13:04] LABS: ANISOCYTOSIS NONE SEEN; OVALOCYTES 1+; PLAT.SUFFICIENCY DECREASED; POIKILOCYTOSIS 1+
[2018-02-20 13:07] LABS: ABS NEUTROPHIL COUNT 2.7; ATYPICAL LYMPHOCYTE 0.9 %; EOSINOPHIL ABS CT 0.2; EOSINOPHILS 5.2 % (0-5.0); LYMPHOCYTES 8.7 % (15.0-45.0); MONOCYTES 5.2 % (0-9.0)
[2018-02-20 15:02] LABS: ABSOLUTE RETICULOCYTE CT. 0.05 M/uL (0.02-0.08); IMM.RETIC FRACTION 13.3 % (3-19); RETIC HGB EQUIVALENT 34.7 (28-36); RETICULOCYTE COUNT 1.8 % (0.5-1.8)
[2018-02-20 15:05] LABS: LACTATE DEHYDROGENASE 69 IU/L (20-246)
[2018-02-20 15:22] LABS: IRON 34 MCG/DL (35-150); TRANSFERRIN SATUR. 21 % (20-55)
[2018-02-20 15:33] VITALS: BP 124/58
[2018-02-20 15:34] VITALS: BP 105/50; BP 89/52
[2018-02-20 15:39] LABS: FERRITIN 94 NG/ML (22-322)
[2018-02-20 20:07] VITALS: BP 120/81
[2018-02-21 00:26] VITALS: BP 143/65
[2018-02-21 04:34] VITALS: BP 137/87
[2018-02-21 05:16] LABS: HEMATOCRIT 27.6 % (38.0-50.0); HEMOGLOBIN 8.9 G/DL (12.5-16.6); MCH 29.8 PG (29.0-34.0); MCHC 32.2 G/DL (30.0-36.0); MCV 92.3 FL (86-99); PLATELET COUNT 105 K/uL (156-360); RBC DIS.WIDTH-CV 14.7 % (11.8-14.6); RBC DIS.WIDTH-SD 49.6 % (39-53); RED BLOOD COUNT 2.99 M/uL (4.00-5.50); WHITE BLOOD COUNT 3.9 K/uL (4.1-10.2)
[2018-02-21 06:01] LABS: INTACT PARATHYROID HORMONE 9 pg/mL (10-69)
[2018-02-21 06:03] LABS: CHLORIDE 108 MEQ/L (99-109); CREATININE 1.8 MG/DL (0.6-1.3); GFR ESTIMATE (CALCULATED) 38 mL/min/ (58.99-99999); GLUCOSE 93 mg/dL (70-99); POTASSIUM 3.8 MEQ/L (3.7-5.4); SODIUM 137 MEQ/L (136-147); UREA NITROGEN (BUN) 29 mg/dL (9-23)
[2018-02-21 06:04] LABS: ALBUMIN 2.3 G/DL (3.4-5.0); GLOBULINS 2.3 G/DL (2.3-3.5); TOTAL PROTEIN 4.6 G/DL (6.4-8.2)
[2018-02-21 07:47] VITALS: BP 144/66
[2018-02-21 11:36] VITALS: BP 133/59
[2018-02-21] MEDS ORDERED: LOPRESSOR25 MG PO (14:45)
[2018-02-23 15:17] LABS: ALBUMIN 2.25 G/DL (3.6-4.9); ALPHA-1 GLOBULIN 0.29 G/DL (0.15-0.40); ALPHA-2 GLOBULIN 0.53 G/DL (0.45-0.85); BETA-GLOBULIN 0.68 G/DL (0.65-1.15); GAMMA-GLOBULIN 0.84 G/DL (0.60-1.35)
== END 2018-02-21 18:46 | disposition left against medical advice (07) | DRG 149 ==
LOC: EME 12:35 → EDOF 17:08 → 4SOUTH 17:08 → ENRESERV 17:17 → 4SOUTH 18:04
PROVIDERS: Emergency Medicine; Internal Medicine
DX: R42 Dizziness and giddiness (principal); E86.0 Dehydration; E87.2 Acidosis; N17.9 Acute kidney failure, unspecified; E83.52 Hypercalcemia; D61.818 Other pancytopenia; I95.9 Hypotension, unspecified; I13.0 Hypertensive heart and chronic kidney disease with heart failure and stage 1 through stage 4 chronic kidney disease, or unspecified chronic kidney disease; I50.32 Chronic diastolic (congestive) heart failure; N18.3 Chronic kidney disease, stage 3 (moderate); J96.10 Chronic respiratory failure, unspecified whether with hypoxia or hypercapnia; J44.9 Chronic obstructive pulmonary disease, unspecified; L89.610 Pressure ulcer of right heel, unstageable; I27.20 Pulmonary hypertension, unspecified; Z99.81 Dependence on supplemental oxygen; I69.351 Hemiplegia and hemiparesis following cerebral infarction affecting right dominant side; I25.10 Atherosclerotic heart disease of native coronary artery without angina pectoris; E78.5 Hyperlipidemia, unspecified; Z66 Do not resuscitate; F17.200 Nicotine dependence, unspecified, uncomplicated; I25.2 Old myocardial infarction; Z95.1 Presence of aortocoronary bypass graft; Z95.0 Presence of cardiac pacemaker; Z85.820 Personal history of malignant melanoma of skin
CPT/HCPCS: 36600; 70450; 71045; 71046; 71250; 73630; 74176; 78580; 80048; 80053; 81003; 82525 90; 82728; 83540; 83605; 83615; 83883 90; 83921 90; 83970; 84165; 84443; 84466; 84484; 84630 90; 85007; 85025; 85027; 85046; 85060; 86334; 87040; 87147; 87205; 93005; 94640; 94644; 94760; 94799; 99281; 99285; A9540; J1644; J7030